=== PATIENT | female | born 1970 | race Caucasian/White ===

== ENCOUNTER 2022-02-15 10:06 | Outpatient (CLI) | payer BC | END 2022-02-15 10:07 | disposition home or self-care (01) | LOC: CSHMAMMO 10:06 | PROVIDERS: ATTEND Family Medicine | DX: Z12.31 Encounter for screening mammogram for malignant neoplasm of breast (principal); Z80.3 Family history of malignant neoplasm of breast | CPT/HCPCS: 77063; 77067 ==

== ENCOUNTER 2023-05-03 09:44 | Outpatient (CLI) | payer BC | END 2023-05-03 09:45 | disposition home or self-care (01) | LOC: CSHMAMMO 09:44 | PROVIDERS: ATTEND Physician Assistant | DX: Z12.31 Encounter for screening mammogram for malignant neoplasm of breast (principal); Z80.3 Family history of malignant neoplasm of breast | CPT/HCPCS: 77063; 77067 ==

== ENCOUNTER 2024-10-01 12:43 | Outpatient (CLI) | payer BC | END 2024-10-01 12:44 | disposition home or self-care (01) | LOC: CSHMAMMO 12:43 | PROVIDERS: ATTEND Physician Assistant | DX: Z12.31 Encounter for screening mammogram for malignant neoplasm of breast (principal); Z80.3 Family history of malignant neoplasm of breast | CPT/HCPCS: 77063; 77067 ==